=== PATIENT | female | born 2000 | race Caucasian/White ===

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

== ENCOUNTER 2022-05-06 10:06 | Outpatient (RCR) | payer MEDICAID ==
[~2022-05-06] VITALS: Ht 165.1 cm; Wt 69.9 kg
[2022-05-06] MEDS ORDERED: QUALITY CHOICE1 TA7 PO (10:19)
[2022-05-06 10:42] VITALS: BP 93/58; PULSE 69; TEMP 98.5
--- NOTE | 2022-05-06 11:00 | NUR ---
Pt remained in dept following initial dose of rocephin until this time. She tolerated med without issue. No s/s of reaction. IV DC'd per pt request. She exits dept with steady.
== END 2022-05-06 11:00 | disposition still patient (30) ==
LOC: EUO 10:06
DX: O23.11 Infections of bladder in pregnancy, first trimester (principal)
CPT/HCPCS: J0696

== ENCOUNTER 2022-05-08 10:00 | Outpatient (RCR) | payer MEDICAID ==
[2022-05-07 10:07] VITALS: BP 115/65; PULSE 67; TEMP 97.8
[~2022-05-08] VITALS: Ht 165.1 cm; Wt 69.9 kg
[~2022-05-08 10:00] MED LIST: QUALITY CHOICE1 TA7 PO
[2022-05-08 10:16] VITALS: BP 98/60; PULSE 70; TEMP 98.2
--- NOTE | 2022-05-08 10:20 | NUR ---
Pt tolerated infusion without issue. IV DC'd, site wrapped with coban. She exits dept with steady gait.
== END 2022-05-08 10:29 | disposition home or self-care (01) ==
LOC: EUO 10:00
DX: O23.11 Infections of bladder in pregnancy, first trimester (principal); Z3A.00 Weeks of gestation of pregnancy not specified
CPT/HCPCS: J0696